=== PATIENT | male | born 1990 | race Caucasian/White ===

== ENCOUNTER 2017-04-26 08:47 | Emergency (ER) | payer OTHER ==
[2017-04-26 08:57] VITALS: BP 114/62; PULSE 81; TEMP 98.2; BMI 19.3
[2017-04-26] MEDS ORDERED: METHADONE HCL 10 MG TABLET (FOR DETOX USE ONLY) PO ONE (09:30)
[2017-04-26] MEDS ORDERED: METHADONE HCL 10 MG TABLET ONE (09:33)
--- NOTE | 2017-04-26 09:36 | PDOC ---
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 pt has no vomiting or tremulous. 04/26/17 09:32 Severity: mild Past History - Past Medical History Allergies/Adverse Reactions: Allergies Allergy/AdvReac Type Severity Reaction Status Date / Time No Known Allergies Allergy Verified 04/26/17 08:50 Home Medications: Ambulatory Orders NK [No Known Home Medication] 04/26/17 COPD: No - Suicide/Smoking/Psychosocial Hx Smoking History: Current some day smoker Number of Cigarettes Smoked Daily: 2 Information on smoking cessation initiated: Yes 'Breaking Loose' booklet given: 04/26/17 Hx Alcohol Use: No Drug/Substance Use Hx: No Substance Use Type: Heroin, Marijuana *Physical Exam - Vital Signs Last Vital Signs Temp Pulse Resp BP Pulse Ox 98.2 F 81 98 H 114/62 98 04/26/17 08:50 04/26/17 08:50 04/26/17 08:50 04/26/17 08:50 04/26/17 08:50 - Physical Exam General Appearance: Yes: Nourished, Appropriately Dressed HEENT: positive: EOMI, [place], TMs Normal, Pharynx Normal Neck: positive: Supple. negative: Tender Respiratory/Chest: positive: Lungs Clear, Normal Breath Sounds Cardiovascular: positive: Regular Rhythm, Regular Rate Gastrointestinal/Abdominal: positive: Normal Bowel Sounds, Soft Musculoskeletal: positive: Normal Inspection Extremity: positive: Normal Capillary Refill, Normal Inspection, Normal Range of Motion Integumentary: positive: Normal Color, Dry, Warm Neurologic: positive: Fully Oriented, Alert, Normal Mood/Affect, Normal Response , Motor Strength 5/5 Medical Decision Making - Medical Decision Making 04/26/17 09:43 cc: missed methadone dose pt states he takes 90mg methadone daily last dose 36hrs ago no vomiting or diarrhea, c/o chills unable to confirm dosage, the clinic is closed will give 10mg methadone now pt understands to follow up with his clinic tomorrow, pt agrees. *DC/Admit/Observation/Transfer Diagnosis at time of Disposition: Medication administered - Discharge Dispostion Disposition: HOME Condition at time of disposition: Good - Referrals - Patient Instructions Additional Instructions: follow with your clinic tomorrow - Post Discharge Activity
== END 2017-04-26 09:54 | disposition home or self-care (01) ==
LOC: JER 08:47 → JERFT 08:47
DX: F11.20 Opioid dependence, uncomplicated (principal); Z79.899 Other long term (current) drug therapy
CPT/HCPCS: 99281-25